=== PATIENT | male | born 1955 | race Caucasian/White ===

== ENCOUNTER 2023-11-18 06:35 | Emergency (ER) | payer MEDICARE ==
[~2023-11-18] VITALS: Ht 165.1 cm; Wt 69.0 kg
[2023-11-18 06:49] VITALS: O2SAT 97
[2023-11-18 06:59] VITALS: BP 154/84; PULSE 86; RESP 16; O2SAT 100
== END 2023-11-18 08:53 | disposition left against medical advice (07) ==
LOC: ER 06:35
DX: R51.9 Headache, unspecified (principal); Z53.21 Procedure and treatment not carried out due to patient leaving prior to being seen by health care provider